=== PATIENT | female | born 1990 | race Caucasian/White ===

== ENCOUNTER 2017-12-10 00:51 | Inpatient (IN) ==
[~2017-12-10 00:51] MED LIST: Famotidine 20 MG/2 ML VIAL IVP PRN; Metoclopramide 10 MG/2 ML VIAL IVP PRN; Naloxone 0.4 MG/ML INJ IVP PRN; Ondansetron 4 MG/2 ML VIAL IVP PRN
[2017-12-10] MEDS ORDERED: Ringers Solution, Lactated 1,000 ML IVC ONE (00:56)
[2017-12-10] MEDS ORDERED: Oxytocin 20 units/ LR 1000 mL 20 UNIT/1,000 ML BAG IVC ONE ×2 (00:56→03:15)
[2017-12-10] MEDS ORDERED: CeFAZolin Premix DUPLEX 2,000 MG/50 ML BAG IVPB ONE (00:56)
[2017-12-10] MEDS ORDERED: Oxytocin 20 units/ LR 1000 mL 20 UNIT/1,000 ML BAG IVC SCH ×2 (01:00→08:30)
[2017-12-10] MEDS ORDERED: Ringers Solution, Lactated 1,000 ML IVC SCH (01:00)
[2017-12-10] MEDS ORDERED: *HR* FentaNYL (PF) 100 MCG/2 ML VIAL ONE (01:25)
[2017-12-10] MEDS ORDERED: EPHEDrine 50 MG/ML VIAL ONE (01:25)
[2017-12-10] MEDS ORDERED: *HR* Oxytocin 10 UNIT/ML VIAL IM ONE (01:25)
[2017-12-10] MEDS ORDERED: Morphine Sulfate/PF 5mg/10mL Vial ONE (01:25)
[2017-12-10] MEDS ORDERED: Ringers Solution, Lactated 2,000 ML ONE (01:28)
[2017-12-10 02:54] LABS: Basophils % 0.2 %; Eosinophils % 0.2 %; Hematocrit 41.4 % (35.3-44.9); Hemoglobin 13.9 g/dL (11.5-15.4); Immature Granulocytes % 0.4 % (0-4); Lymphocytes # 1.4 K/mcL (0.6-4.6); Lymphocytes % 11.4 %; Mean Corpuscular HGB Conc 33.6 g/dL (31.6-35.5); Mean Corpuscular Hemoglobin 29.7 pg (28.0-33.3); Mean Corpuscular Volume 88.5 fL (83.0-100.0); Mean Platelet Volume 10.9 fL (9.4-12.4); Monocytes # 0.7 K/mcL (0.0-1.3); Monocytes % 5.8 %; Neutrophils # 9.9 K/mcL (1.6-8.9); Platelet Count 234 K/mcL (140-400); Red Blood Count 4.68 M/mcL (3.82-4.97); Red Cell Distribution Width 13.8 % (11.5-14.5)
[2017-12-10 02:55] LABS: Amphetamine Screen,Urine Negative ng/mL (Cutoff=1000); Barbiturate Screen,Urine Negative ng/mL (Cutoff=200); Benzodiazepines Screen,Urine Negative ng/mL (Cutoff=200); Cannabinoid Screen,Urine Negative ng/mL (Cutoff = 50); Cocaine Screen,Urine Negative ng/mL (Cutoff= 300); Opiate Screen,Urine Negative ng/mL (Cutoff=300); Phencyclidine Screen,Urine Negative ng/mL (Cutoff=25)
--- NOTE | 2017-12-10 05:55 | OB/GYN History & Physical ---
Date of Encounter: 12/10/17 Time of Encounter: 01:15 Assessment and Plan (1) Active labor Current visit: Yes Status: Acute Plan: -[place] showing regular contractions and cervix dilated 4-5cm, therefore patient in active labor - US performed and showed breech presentation - plan for primary 2/2 to breech presentation, consent obtained - CBC and urine drug screen obtained - will monitor glucose s/p (2) 38 weeks gestation of Current visit: Yes Status: Acute (3) Breech presentation Current visit: Yes Status: Acute Qualifiers: Fetus number: single or unspecified fetus Qualified Code(s): O32.1XX0 - Maternal care for breech presentation, not applicable or unspecified (4) Gestational diabetes Current visit: Yes Status: Acute Insulin dependent, will monitor blood glucose Qualifiers: Gestational diabetes mellitus control: insulin-controlled Trimester: third trimester Qualified Code(s): O24.414 - Gestational diabetes mellitus in , insulin controlled History of Present Illness Chief complaint: contractions HPI: Ms. Ryder is a 27 year old female at 38+6 weeks presented to L&D for contractions and was found to be in active labor. complicated by gestational DM insulin dependant and breech presentation. Patient began having contractions around 9pm today. Reports active movement. Denies vaginal bleeding, leakage of fluid. Denies N/V, [place], changes in vision. Patient was scheduled for a primary on 12/11/17 2/2 breech presentation. Patient follows with Dr. Bingham. PNL: Blood type O+. GBS neg, RI, HBsAG neg, HIV neg. RPR neg. Past Med Surg Social Fam HX - Past Medical History Source: patient, old records reviewed Medical history: no medical history Psychiatric history: no psych history - Past Surgical History Surgical History: other (wisdom teeth) - Social History Smoking Status: Never smoker Smokeless Tobacco Status: No Alcohol use: none Drug use: marijuana - Family History Mother Living Status: Still Living Obstetrical History - Pregnancies : 1 Para: 0 Term: 0 : 0 Ab's: 0 Livin - History/Complications History/Complications: none Medications and Allergies Insulin Human Regular [HumuLIN R] 8 unit SQ HS 12/10/17 [History] Insulin LISPRO [HumaLOG] 8 units SQ DAILY 12/10/17 [History] Vit/Iron Fumarate/FA [ Tablet] 1 each PO DAILY 12/10/17 [ History] 3 Allergy/AdvReac Type Severity Reaction Status Date / Time No Known Allergies Allergy Verified 12/10/17 01:00 Review of System OB All systems PM: reviewed and no additional remarkable complaints except as stated Exam - Vital Signs Vital signs: Initial Vital Signs Temp Pulse Resp BP Pulse Ox 97.6 F 50 16 128/79 98 12/10/17 05:05 12/10/17 05:05 12/10/17 05:05 12/10/17 05:05 12/10/17 05:05 - Constitutional Constitutional: well developed, well nourished, no acute distress - HEENT HEENT: EOMI, Normocephaly - Neck Neck exam: full ROM - Lungs Respiratory exam: CTAB - Cardiovascular Cardiovascular exam: RRR - Abdomen Abdomen: Present: non tender - Extremities Extremities exam: full ROM, pedal edema - Cervix Dilation: 4 Effacement: 100 Station: -2 - Uterus Uterus exam: Present: normal size Results Result Diagrams: 12/10/17 01:00 Abnormal lab results WBC 12.2 K/mcL (4.3-11.1) H 12/10/17 01:00 Neutrophils # 9.9 K/mcL (1.6-8.9) H 12/10/17 01:00 POC Glucose 115 (58-89) H 12/10/17 04:14 All other labs normal. - VTE Documentation of Mechanical Device: Intermittent pneumatic compression device
--- NOTE | 2017-12-10 06:55 | OB/GYN Procedure Note ---
Section - Date of procedure: 12/10/17 Preop diagnosis: breech Post-op diagnosis: same Procedure: section, primary low transverse Surgeon: Kristen Brice Estimated blood loss (cc): 400 Was there an quality assurance assistant present: Yes Entry Level Project Coordinator: Zuleika Nugent Log Feeder: Ramos Galindo Anesthesia Type: Spinal section complications: none Disposition: L&D Recovery Room Specimens: Cord blood - (s) A Delivery Date: 12/10/17 Infant Delivery Time: 02:04 Presentation: breech Gender: Female Viability: Viable Pounds: 6 Ounces: 13 Gram Weight: 3.08 kg at 1 minute: 8 at 5 minutes: 9 Shoulder Dystocia: not encountered Specimens collected: cord blood Placenta: partial extraction Cord: nuchal cord (x2), 3 umbilical vessels - Narrative Narrative: Patient was taken to the operative suite and placed under spinal anesthetic. She was then prepped and draped in normal sterile fashion in the dorsal supine position. Timeout was then performed. Antibiotics were given at room time. SCDs are on and active. Pfannenstiel skin incision is then made and carried through to underlying layer of fascia with the Bovie. The fascia was then incised in the midline and incision extended laterally with the Dangelo scissors. The fascia was tented up and dissected off the rectus muscles sharply. The rectus muscles were in the midline and the peritoneum was tented up and entered sharply with the Metzenbaum scissors. The peritoneal incision was then extended bluntly. The bladder blade was then inserted and the vesicouterine peritoneum was entered sharply. Bladder flap was created digitally. A low transverse uterine incision was then made. The infant breech was brought to the incision and the infant was delivered using fundal pressure and breech maneuvers. There was a nuchal cord 2. Cord was clamped and cut. Infant was handed to waiting nursery staff. Placenta delivered spontaneously complete and intact with a three-vessel cord. The uterus was cleared of all clots and debris using moist laparotomy sponge. The uterine incision was then closed using 0 Vicryl in a running locked fashion. A second layer of the same suture was used to obtain excellent hemostasis. The abdomen was then cleared of all clots and debris using copious irrigation. The fascial incision was then closed using 0 Vicryl in a running fashion. The skin was closed using 4-0 Vicryl in a subcuticular fashion. Steri- Strips and sterile dressing are then placed. Mother and taken to recovery in stable condition.
[2017-12-10] MEDS ORDERED: Metoclopramide 10 MG/2 ML VIAL IVP PRN (08:30)
[2017-12-10] MEDS ORDERED: Ondansetron 4 MG/2 ML VIAL IVP PRN (08:30)
[2017-12-10] MEDS ORDERED: Simethicone 80 MG TAB.CHEW PO PRN (08:30)
[2017-12-10] MEDS ORDERED: Sennosides 8.6 MG TABLET PO PRN (08:30)
[2017-12-10] MEDS: Ibuprofen 600 MG TABLET PO PRN (19:51)
[2017-12-11] MEDS: Ibuprofen 600 MG TABLET PO PRN ×3 (03:26→23:01)
[2017-12-11 04:46] LABS: Basophils % 0.3 %; Eosinophils # 0.1 K/mcL (0.0-0.6); Eosinophils % 0.8 %; Hematocrit 37.2 % (35.3-44.9); Hemoglobin 12.1 g/dL (11.5-15.4); Immature Granulocytes % 0.5 % (0-4); Lymphocytes # 1.7 K/mcL (0.6-4.6); Lymphocytes % 15.5 %; Mean Corpuscular HGB Conc 32.5 g/dL (31.6-35.5); Mean Corpuscular Hemoglobin 29.6 pg (28.0-33.3); Mean Platelet Volume 10.9 fL (9.4-12.4); Monocytes % 9.4 %; Neutrophils # 7.9 K/mcL (1.6-8.9); Nucleated Red Blood Cells 0.2 /100 WBC (0); Platelet Count 205 K/mcL (140-400); Red Blood Count 4.09 M/mcL (3.82-4.97); Red Cell Distribution Width 14.2 % (11.5-14.5); Segmented Neutrophils % 73.5 %
[2017-12-11] MEDS: Prenatal Vit/FA 1 EACH TABLET PO SCH (08:41)
[2017-12-11] MEDS: *HR* OxyCODONE/APAP 5/325 TABLET PO PRN ×2 (11:37→20:03)
--- NOTE | 2017-12-11 11:42 | OB/GYN Progress Note ---
Date of Encounter: 12/11/17 Time of Encounter: 11:35 - Assessment and Plan (1) Status post primary low transverse section Current Visit: Yes Status: Acute Continue routine postop/ care patient meeting day 1 milestones (2) Breast feeding status of mother Current Visit: Yes Status: Acute support prn Subjective - Subjective Principal diagnosis: Status post primary c/s day 1 Interval history: Patient is resting in bed. Patient reports pain is getting a little worse. Patient has only had motrin. Will try percocet for pain control. Patient asking about the possibility to go home this evening. We will reevaluate after dinner. Patient reports: appetite normal, voiding normally, ambulating normally [place]: doing well, nursing well Objective - Vital Signs Latest vital signs: Vital Signs Temp Pulse Resp BP Pulse Ox 12/11/17 08:42 97.6 F 76 20 132/84 97 12/10/17 19:45 97.6 F 67 14 105/72 97 12/10/17 16:50 97.4 F L 68 12 112/68 96 12/10/17 12:05 98.3 F 60 16 107/75 97 Intake and Output 12/10/17 12/11/17 12/11/17 23:59 07:59 15:59 Intake Total 1300 / 1300 360 / 360 Output Total 1850 / 1850 1000 / 1000 Balance -550 / -550 -640 / -640 Intake: Oral 1300 / 1300 360 / 360 Output: Urine 600 / 600 1000 / 1000 Catheter 1250 / 1250 Other: Meal Dinner Breakfast Percent of Meal Consumed 100% 100% Weight 92.079 kg Blood Glucose* 101 Patient Weight 12/11/17 23:59 Weight 92.079 kg - Exam Lungs: bilateral: normal Chest: Normal S1, Normal S2 Extremities: Present: normal Abdomen: Present: normal appearance, soft, gravid Incision: Present: normal, dry, dressed (medipore dressing) Uterus: Present: firm Fundal Height: 1 (U/1) - Labs Labs: Laboratory Results - last 24 hr 12/11/17 12/11/17 04:22 07:10 WBC 10.8 RBC 4.09 Hgb 12.1 D Hct 37.2 MCV 91.0 MCH 29.6 MCHC 32.5 RDW 14.2 Plt Count 205 MPV 10.9 Immature Gran % 0.5 Seg Neutrophils % 73.5 Lymphocytes % 15.5 Monocytes % 9.4 Eosinophils % 0.8 Basophils % 0.3 Neutrophils # 7.9 Lymphocytes # 1.7 Monocytes # 1.0 Eosinophils # 0.1 Basophils # 0.0 Nucleated RBCs/100 WBC 0.2 H POC Glucose 101 H
[2017-12-12] MEDS: *HR* OxyCODONE/APAP 5/325 TABLET PO PRN ×2 (02:48→08:56)
[2017-12-12] MEDS: Ibuprofen 600 MG TABLET PO PRN (07:27)
[2017-12-12 08:23] VITALS: BP 113/77
--- NOTE | 2017-12-12 08:32 | Discharge Summary ---
Date of Encounter: 12/12/17 Time of Encounter: 08:45 - Discharge Diagnosis (1) Active labor Priority: Secondary Status: Resolved (2) 38 weeks gestation of Priority: Secondary Status: Resolved (3) Breech presentation Priority: Primary Status: Resolved Qualifiers: Fetus number: single or unspecified fetus Qualified Code(s): O32.1XX0 - Maternal care for breech presentation, not applicable or unspecified (4) Gestational diabetes Priority: Secondary Status: Acute Qualifiers: Gestational diabetes mellitus control: insulin-controlled Trimester: third trimester Qualified Code(s): O24.414 - Gestational diabetes mellitus in , insulin controlled (5) Status post primary low transverse section Priority: Primary Status: Acute - Discharge Medications Prescriptions: OxyCODONE/APAP 5/325 [Percocet 5/325 MG] 1 each PO Q4HR PRN #27 tablet PRN Reason: Moderate pain 4-6 Ibuprofen [Motrin] 600 mg PO Q6HR PRN #60 tablet PRN Reason: Cramping Breast Pump [BREAST PUMP] 1 each .ROUTE AD #1 each Docusate [Colace] 100 mg PO BID #10 capsule Home Medications: Vit/Iron Fumarate/FA [ Tablet] 1 each PO DAILY 12/10/17 [ History] Breast Pump [BREAST PUMP] 1 each .ROUTE AD #1 each 12/12/17 [Rx] Docusate [Colace] 100 mg PO BID #10 capsule 12/12/17 [Rx] Ibuprofen [Motrin] 600 mg PO Q6HR PRN #60 tablet 12/12/17 [Rx] OxyCODONE/APAP 5/325 [Percocet 5/325 MG] 1 each PO Q4HR PRN #27 tablet 12/12/17 [Rx] Allergies/Adverse Reactions: 3 Allergy/AdvReac Type Severity Reaction Status Date / Time No Known Allergies Allergy Verified 12/10/17 01:00 Data Procedures and tests throughout hospitalization: Laboratory Tests 12/10/17 12/10/17 12/10/17 01:00 01:08 04:14 WBC 12.2 H RBC 4.68 Hgb 13.9 Hct 41.4 MCV 88.5 MCH 29.7 MCHC 33.6 RDW 13.8 Plt Count 234 MPV 10.9 Immature Gran % 0.4 Seg Neutrophils % 82.0 Lymphocytes % 11.4 Monocytes % 5.8 Eosinophils % 0.2 Basophils % 0.2 Neutrophils # 9.9 H Lymphocytes # 1.4 Monocytes # 0.7 Eosinophils # 0.0 Basophils # 0.0 Nucleated RBCs/100 WBC POC Glucose 115 H Urine Opiates Screen Negative Ur Barbiturates Screen Negative Ur Phencyclidine Scrn Negative Ur Amphetamines Screen Negative U Benzodiazepines Scrn Negative Urine Cocaine Screen Negative U Marijuana (THC) Screen Negative 12/11/17 12/11/17 04:22 07:10 WBC 10.8 RBC 4.09 Hgb 12.1 D Hct 37.2 MCV 91.0 MCH 29.6 MCHC 32.5 RDW 14.2 Plt Count 205 MPV 10.9 Immature Gran % 0.5 Seg Neutrophils % 73.5 Lymphocytes % 15.5 Monocytes % 9.4 Eosinophils % 0.8 Basophils % 0.3 Neutrophils # 7.9 Lymphocytes # 1.7 Monocytes # 1.0 Eosinophils # 0.1 Basophils # 0.0 Nucleated RBCs/100 WBC 0.2 H POC Glucose 101 H Urine Opiates Screen Ur Barbiturates Screen Ur Phencyclidine Scrn Ur Amphetamines Screen U Benzodiazepines Scrn Urine Cocaine Screen U Marijuana (THC) Screen Date of admission: 12/10/17 00:51 Primary care physician: PCP NONE Discharging clinician: Franci Brooks Anticipated date of discharge: 12/12/17 - Patient Status Disposition: Home, Self-Care Condition: Good Functional capacity at discharge: independent ambulation Overall status at discharge: patient is progressing back to baseline - Discharge Instructions Follow Up With: NONE,PCP [Primary Care Provider] - Kristen Brice DO [Partnered Physician] - - Diet and Activity Activity: increase activity as tolerated Diet: advance to your usual diet Hospital Course Reason for admission: active labor Delivery: section Episiotomy: none Laceration: none Other procedures: none complications: none Discharge diagnosis: IUP at term delivered [place] baby: female Hospital course: - Date of procedure: 12/10/17 Preop diagnosis: breech Post-op diagnosis: same Procedure: section, primary low transverse Surgeon: Kristen Brice Estimated blood loss (cc): 400 Was there an medical assistant float present: Yes Cyber Crime Investigator: Zuleika Nugent Hydraulic Corrugating Machine Operator: Ramos Galindo Anesthesia Type: Spinal section complications: none Disposition: L&D Recovery Room Specimens: Cord blood - Infant (s) Infant A Infant Delivery Date: 12/10/17 Infant Delivery Time: 02:04 Presentation: breech Gender: Female Viability: Viable Pounds: 6 Ounces: 13 Gram Weight: 3.08 kg at 1 minute: 8 at 5 minutes: 9 Shoulder Dystocia: not encountered Specimens collected: cord blood Placenta: partial extraction Cord: nuchal cord (x2), 3 umbilical vessels Patient is stable in . No complications s/p . Patient's pain and bleeding is under control. Patient ready for discharge. Will need 3 hr glucose tolerance at 4 weeks. Time Attestation: Total time spent providing and/or coordinating discharge services: Time Spent: Less than 30 minutes - VTE Documentation of Mechanical Device: Graduated compression elastic hosiery - Attending Attestation I examined this patient and my medical decision-making was reviewed with the Resident Physician. I agree with the documented findings, disposition and treatment plan as described except to the extent set forth below. OARRS reviewed and appropriate for narcotic Rx for post-op pain. Joshua Brooks CNM Exam - Constitutional Vitals: Temp Pulse Resp BP Pulse Ox 97.6 F 66 18 113/77 97 12/12/17 08:22 12/12/17 08:22 12/12/17 08:22 12/12/17 08:22 12/12/17 08:22 General appearance IM: cooperative, A&O X 3, pleasant, no acute distress - Respiratory Respiratory exam: Present: CTAB - Cardiovascular Cardiovascular exam IM: Present: RRR - GI/Abdominal GI/Abdominal exam IM: soft Incision: normal, dry, intact, warm Additional comments: steri strips in place without discharge present - External exam: normal external exam Uterine Tone: Firm Uterus Position: 2 Fingers Below Umbilicus - Extremities Exam Extremities exam IM: Present: full ROM - Neurological Exam Neurological exam: alert, no focal deficits
[2017-12-12] MEDS: Prenatal Vit/FA 1 EACH TABLET PO SCH (08:56)
== END 2017-12-12 12:24 | disposition home or self-care (01) | DRG 766 ==
LOC: 1NENULAB → 1NENUOBS 05:15
PROVIDERS: ADMIT Advanced Practice Midwife; ATTEND Advanced Practice Midwife

== ENCOUNTER 2020-11-10 06:00 | Inpatient (IN) ==
[2020-11-10] MEDS ORDERED: Azithromycin 500 MG in 0.9 % Sodium Chloride 250 ML IVPB ONE (07:21)
[2020-11-10] MEDS ORDERED: *HR* FentaNYL (PF) 100 MCG/2 ML VIAL IVP PRN (07:21)
[2020-11-10] MEDS ORDERED: Metoclopramide 10 MG/2 ML VIAL IVP PRN (07:21)
[2020-11-10] MEDS ORDERED: Naloxone 0.4 MG/ML INJ IVP PRN (07:21)
[2020-11-10] MEDS ORDERED: Ondansetron 4 MG/2 ML VIAL IVP PRN ×2 (07:21→19:39)
[2020-11-10] MEDS ORDERED: Famotidine 20 MG/2 ML VIAL IVP PRN (07:21)
[2020-11-10] MEDS ORDERED: Lidocaine 1% 20 ML MDV ID PRN (07:21)
[2020-11-10] MEDS ORDERED: Oxytocin 20 units/ LR 1000 mL 20 UNIT/1,000 ML BAG IVC SCH ×2 (07:30→17:59)
[2020-11-10 07:43] LABS: Amphetamine Screen,Urine Negative ng/mL (Cutoff=1000); Barbiturate Screen,Urine Negative ng/mL (Cutoff=200)
[2020-11-10 07:44] LABS: Basophils % 0.4 %; Eosinophils # 0.1 K/mcL (0.0-0.6); Eosinophils % 0.8 %; Hematocrit 38.6 % (35.3-44.9); Hemoglobin 12.5 g/dL (11.5-15.4); Immature Granulocytes % 0.6 % (0-4); Lymphocytes # 1.4 K/mcL (0.6-4.6); Lymphocytes % 19.6 %; Mean Corpuscular HGB Conc 32.4 g/dL (31.6-35.5); Mean Corpuscular Hemoglobin 30.2 pg (28.0-33.3); Mean Corpuscular Volume 93.2 fL (83.0-100.0); Mean Platelet Volume 10.6 fL (9.4-12.4); Monocytes # 0.5 K/mcL (0.0-1.3); Monocytes % 6.5 %; Neutrophils # 5.1 K/mcL (1.6-8.9); Platelet Count 196 K/mcL (140-400); Red Blood Count 4.14 M/mcL (3.82-4.97); Red Cell Distribution Width 14.5 % (11.5-14.5); Segmented Neutrophils % 72.1 %; White Blood Count 7.1 K/mcL (4.3-11.1)
[2020-11-10 07:45] LABS: Benzodiazepines Screen,Urine Negative ng/mL (Cutoff=300); Cannabinoid Screen,Urine Negative ng/mL (Cutoff = 50); Cocaine Screen,Urine Negative ng/mL (Cutoff= 300); Opiate Screen,Urine Negative ng/mL (Cutoff=300); Phencyclidine Screen,Urine Negative ng/mL (Cutoff=25)
[2020-11-10] MEDS: Ringers Solution, Lactated 1,000 ML IVC SCH ×2 (08:23→13:25)
[2020-11-10 09:21] LABS: Adenovirus Not Detected (Not Detect); Coronavirus 229E Not Detected (Not Detect); Coronavirus HKU1 Not Detected (Not Detect); Coronavirus NL63 Not Detected (Not Detect); Coronavirus OC43 Not Detected (Not Detect); SARS-CoV-2 Not Detected (Not Detect)
[2020-11-10 09:22] LABS: Bordetella Pertussis Not Detected (Not Detect); Chlamydophila pneumoniae Not Detected (Not Detect); Human Metapneumovirus Not Detected (Not Detect); Human Rhinovirus/Enterovirus Not Detected (Not Detect); Influenza A Subtype 2009 H1 Not Detected (Not Detect); Influenza B Not Detected (Not Detect); Mycoplasma pneumoniae Not Detected (Not Detect); Parainfluenza Virus 1 Not Detected (Not Detect); Parainfluenza Virus 2 Not Detected (Not Detect); Parainfluenza Virus 3 Not Detected (Not Detect); Parainfluenza Virus 4 Not Detected (Not Detect); Respiratory Syncytial Virus Not Detected (Not Detect)
[2020-11-10] MEDS ORDERED: *HR* FentaNYL (PF) 100 MCG/2 ML VIAL EP ONE (12:49)
[2020-11-10] MEDS ORDERED: EPHEDrine 50 MG/ML VIAL IVP PRN (12:49)
[2020-11-10] MEDS ORDERED: Ropivacaine/PF 0.2% 20 ML VIAL EP ONE (12:49)
[2020-11-10] MEDS ORDERED: Epidural Premix (fent/bupiv) 110 ML EP ONE (13:00)
[2020-11-10] MEDS ORDERED: Epidural Premix (fent/bupiv) 110 ML EP SCH (13:00)
[2020-11-10] MEDS ORDERED: *HR* HYDROcodone/Acet 5/325 mg TABLET PO PRN (17:59)
[2020-11-10] MEDS ORDERED: Oxytocin 20 units/ LR 1000 mL 20 UNIT/1,000 ML BAG IVC ONE (17:59)
[2020-11-10] MEDS ORDERED: Lanolin 7 G OINT...G. TP PRN (17:59)
[2020-11-10] MEDS ORDERED: Benzocaine/Menthol 56 GM AEROSOL SPRAY TP PRN (17:59)
[2020-11-10] MEDS ORDERED: Ibuprofen 600 MG TABLET PO PRN (17:59)
[2020-11-10] MEDS ORDERED: Acetaminophen 325 MG TABLET PO PRN (17:59)
[2020-11-10] MEDS ORDERED: miSOPROStoL 100 MCG TABLET RC ONE (21:04)
[2020-11-11 05:28] LABS: Basophils % 0.2 %; Eosinophils # 0.1 K/mcL (0.0-0.6); Eosinophils % 0.7 %; Hematocrit 29.3 % (35.3-44.9); Immature Granulocytes % 0.4 % (0-4); Lymphocytes # 1.4 K/mcL (0.6-4.6); Lymphocytes % 11.2 %; Mean Corpuscular HGB Conc 33.4 g/dL (31.6-35.5); Mean Corpuscular Hemoglobin 30.7 pg (28.0-33.3); Mean Corpuscular Volume 91.8 fL (83.0-100.0); Mean Platelet Volume 10.3 fL (9.4-12.4); Monocytes % 8.6 %; Neutrophils # 9.6 K/mcL (1.6-8.9); Platelet Count 169 K/mcL (140-400); Red Blood Count 3.19 M/mcL (3.82-4.97); Red Cell Distribution Width 14.3 % (11.5-14.5); Segmented Neutrophils % 78.9 %
[2020-11-11 05:30] LABS: Hemoglobin 9.8 g/dL (11.5-15.4); White Blood Count 12.1 K/mcL (4.3-11.1)
[2020-11-11] MEDS ORDERED: Prenatal Vit/FA 1 EACH TABLET PO SCH (09:00)
[2020-11-11 16:43] VITALS: BP 118/76
== END 2020-11-11 18:24 | disposition home or self-care (01) | DRG 807 ==
LOC: 1NENULAB 06:29 → 1NENUOBS 19:39
PROVIDERS: ADMIT Obstetrics & Gynecology; ATTEND Obstetrics & Gynecology